=== PATIENT | male | born 1960 | race African-American/Black ===

== ENCOUNTER 2018-06-06 15:50 | Emergency (ER) | payer MEDICARE, OTHER ==
[~2018-06-06] VITALS: Ht 175.3 cm; Wt 78.6 kg
--- NOTE | 2018-06-06 16:25 | ERD ---
ER Documentation Chief Complaint Chief Complaint Suicidal ideation HPI The patient is a 58-year-old male, presenting to the ER because of acute suicidal ideation, want to overdose on his medication, denies auditory/visual hallucination, homicidal ideation, headache, neck pain, chest pain, dyspnea, abdominal pain, vomiting, dizzy, diarrhea. He smokes, denies drinking or using illicit drug Past medical history: COPD, glaucoma, right eye blindness, history of CVA, bipolar, anxiety Past surgical history: Right femur ROS All systems reviewed and are negative except as per history of present illness. Physical Exam Vitals Vital Signs Date Temp Pulse Resp B/P (MAP) Pulse Ox O2 O2 Flow FiO2 Time Delivery Rate 06/06/18 71 14 127/74 100 Room Air 18:10 (91) 06/06/18 97.8 80 14 137/69 100 16:33 (91) Physical Exam Const: No acute distress. Head: Atraumatic. Eyes: Normal Conjunctiva. ENT: Normal External Ears, Nose and Mouth. Neck: Full range of motion. No meningismus. Resp: Mild bilateral expiratory wheezes Cardio: Regular rate and rhythm. Abd: Soft, non distended, normal bowel sounds, non tender. Skin: No petechiae or rashes. Back: No midline or flank tenderness. Ext: No cyanosis, or edema. Neur: Awake and alert. No focal deficit Psych: Depressed and suicidal Result Diagram: 06/06/18 1642 06/06/18 1642 Results 24 hrs Laboratory Tests Test 06/06/18 16:42 White Blood Count 7.3 10^3/ul Red Blood Count 3.74 10^6/ul Hemoglobin 11.4 g/dl Hematocrit 35.8 % Mean Corpuscular Volume 95.7 fl Mean Corpuscular Hemoglobin 30.5 pg Mean Corpuscular Hemoglobin Concent 31.8 g/dl Red Cell Distribution Width 14.6 % Platelet Count 430 10^3/UL Mean Platelet Volume 9.6 fl Immature Granulocytes % 0.300 % Neutrophils % 59.0 % Lymphocytes % 24.7 % Monocytes % 11.7 % Eosinophils % 3.3 % Basophils % 1.0 % Nucleated Red Blood Cells % 0.0 /100WBC Immature Granulocytes # 0.020 10^3/ul Neutrophils # 4.3 10^3/ul Lymphocytes # 1.8 10^3/ul Monocytes # 0.9 10^3/ul Eosinophils # 0.2 10^3/ul Basophils # 0.1 10^3/ul Nucleated Red Blood Cells # 0.0 10^3/ul Sodium Level 139 mmol/L Potassium Level 3.8 mmol/L Chloride Level 105 mmol/L Carbon Dioxide Level 26 mmol/L Anion Gap 8 Blood Urea Nitrogen 13 mg/dl Creatinine 0.71 mg/dl Est Glomerular Filtrat Rate mL/min > 60 mL/min Glucose Level 106 mg/dl Calcium Level 9.4 mg/dl Total Bilirubin 0.0 mg/dl Direct Bilirubin 0.00 mg/dl Indirect Bilirubin 0.0 mg/dl Aspartate Amino Transf (AST/SGOT) 24 IU/L Alanine Aminotransferase (ALT/SGPT) 14 IU/L Alkaline Phosphatase 78 IU/L Total Protein 7.5 g/dl Albumin 3.8 g/dl Globulin 3.70 g/dl Albumin/Globulin Ratio 1.02 Salicylates Level < 1.0 mg/dl Acetaminophen Level < 10.0 ug/ml Ethyl Alcohol Level < 10.0 mg/dl Current Medications Medications Dose Sig/Kendall Start Time Status Last (Trade) Ordered Route PRN Stop Time Admin Dose Reason Admin Ipratropium 0.5 mg ONCE STAT 06/06/18 DC [place] NEB 16:51 06/06/18 (Atrovent 16:52 0.02% (Neb)) 1.25 mg ONCE STAT 06/06/18 DC Levalbuterol INH 16:51 06/06/18 (Xopenex 16:52 Neb) 1 tab ONCE ONCE 06/06/18 DC 06/06/18 Acetaminophen PO 17:00 06/06/18 17:15 / 17:01 Hydrocodone Bitart (Willis (5/325)) Procedures/MDM MEDICAL MAKING DECISION: The patient is a 58-year-old male, presenting with suicidal ideation he was treated with Xopenex 125 mg and Atrovent 0.5 mg. He was treated with Xopeniex 1.25 mg and Atrovent 0.5 mg wheezing and Willis 5 mg for his chronic pain with good response The differential diagnoses considered include but are not limited to decompens ated psychiatric illness, medical noncompliance, anxiety attack, panic attack Departure Diagnosis: Primary Impression: Suicidal ideation Additional Impression: Anemia Condition: Stable Comments He was treated by telepsychiatrist who put him on 5150 hold He is cleared for psychiatric admission MELISSA,SOL M MD Jun 06, 2018 16:25
[2018-06-06 16:33] VITALS: Ht 175.3 cm; Wt 78.6 kg
[2018-06-06] MEDS ORDERED: LEVALBUTEROL (NEB) 1.25 MG/0.5 ML AMP INH STA (16:51)
[2018-06-06] MEDS ORDERED: IPRATROPIUM (NEB) 0.5 MG/2.5 ML AMP NEB STA (16:51)
[2018-06-06] MEDS ORDERED: HYDROCODONE/APAP (5/325) TAB PO ONE (17:00)
--- NOTE | 2018-06-06 17:36 | PSY ---
Date/Time of Note Date/Time of Note DATE: 06/06/18 TIME: 17:30 Psychiatric Subjective Eval Consent Pt consented to telemedicine: Yes Subjective Evaluation Patient location: emergency Chief Complaint: SUICIDAL IDEATION History of present illness 58 yo disabled male BIB [facility] after he called 911 expressing active SI. Pt says he has multiple medical problems, he is not able to take care of his needs, his housing is a slam, he is despondent, hopeless, helpless and was thnking about OD on restoril. He says he is in pain, he is going blind from glaucima, he is wheelchair bound. He denies HI, denies AH or VH . Past psychiatric history pt has a hx prior SA and inpt Hospitalization: Suicidal Attempt(s) Family History denies Medical history Per pt, hx RA, glaucoma, COPD, chronic pain Substance Abuse Substance use: No known substance abuse Social History Marital status: single DPA/Conservatorship: No Occupation/Intermediate: on [employer]SI Psychiatric Objective Eval Review of Systems: Review of Systems: Not Applicable Physical Examination: Sleep: Insomnia Appetite: Decreased Energy: Decreased Interest: Decreased Mental Status Examination: Appearance: Disheveled Eye Contact: Good Psychomotor Activity: Normal Behavior: Cooperative Speech: Clear AFFECT: Appropriate Though Process: Circumstantial Thought Content: Normal Suicidal: Yes Homicidal: No On 72 hour hold: No Orientation: x4 Cognition: Alert Insight: Intact Judgement: Intact Laboratory Results Laboratory Tests Test 06/06/18 16:42 White Blood Count 7.3 10^3/ul Red Blood Count 3.74 10^6/ul Hemoglobin 11.4 g/dl Hematocrit 35.8 % Mean Corpuscular Volume 95.7 fl Mean Corpuscular Hemoglobin 30.5 pg Mean Corpuscular Hemoglobin Concent 31.8 g/dl Red Cell Distribution Width 14.6 % Platelet Count 430 10^3/UL Mean Platelet Volume 9.6 fl Immature Granulocytes % 0.300 % Neutrophils % 59.0 % Lymphocytes % 24.7 % Monocytes % 11.7 % Eosinophils % 3.3 % Basophils % 1.0 % Nucleated Red Blood Cells % 0.0 /100WBC Immature Granulocytes # 0.020 10^3/ul Neutrophils # 4.3 10^3/ul Lymphocytes # 1.8 10^3/ul Monocytes # 0.9 10^3/ul Eosinophils # 0.2 10^3/ul Basophils # 0.1 10^3/ul Nucleated Red Blood Cells # 0.0 10^3/ul Sodium Level 139 mmol/L Potassium Level 3.8 mmol/L Chloride Level 105 mmol/L Carbon Dioxide Level 26 mmol/L Anion Gap 8 Blood Urea Nitrogen 13 mg/dl Creatinine 0.71 mg/dl Est Glomerular Filtrat Rate mL/min > 60 mL/min Glucose Level 106 mg/dl Calcium Level 9.4 mg/dl Total Bilirubin 0.0 mg/dl Direct Bilirubin 0.00 mg/dl Indirect Bilirubin 0.0 mg/dl Aspartate Amino Transf (AST/SGOT) 24 IU/L Alanine Aminotransferase (ALT/SGPT) 14 IU/L Alkaline Phosphatase 78 IU/L Total Protein 7.5 g/dl Albumin 3.8 g/dl Globulin 3.70 g/dl Albumin/Globulin Ratio 1.02 Salicylates Level < 1.0 mg/dl Acetaminophen Level < 10.0 ug/ml Ethyl Alcohol Level < 10.0 mg/dl Assessment and Plan Assessment/Diagnosis Diagnosis MAJOR DEPRESSIVE DISORDER RECURRENT SEVERE W/O PSYCHOSIS Recommendation/Plan Medication Management PLEASE VERIFY PT'S HOME MEDS VIA HIS HOME PHARMACY AND RESUME. PT STATES HE IS ON XANAX 2 MG PO QAM; REDUCING IT BY 1 MG MIGHT LEAD TO BENZOS WITHDRAWALS. PLEASE VERIFY THE DOSE WITH THE PHARMACY AND IF CONFIRMD, PLEASE MAINTAIN ON 2 MG PO QAM WHILE IN ED. Multiple antipsychotics: Yes Discharge Disposition: Psychiatric inpatient Legal Status: Voluntary Other D/D DR LIMON WITH AN ACTIVE PLAN. PLEASE TRANSFER TO IN PSYCH. TIGIST MENDOZA MD Jun 06, 2018 17:36
[2018-06-07] MEDS ORDERED: HYDROCODONE/APAP (5/325) TAB PO ONE (04:30)
[2018-06-07] MEDS ORDERED: ALPRAZOLAM 1 MG TAB PO ONE (04:30)
[2018-06-07] MEDS ORDERED: LORAZEPAM 1 MG TAB PO ONE (12:00)
[2018-06-07] MEDS ORDERED: ONDANSETRON (ODT) 4 MG TAB ODT STA (17:06)
[2018-06-07] MEDS ORDERED: HYDROCODONE/APAP (10/325) TAB PO ONE (17:30)
[2018-06-07 19:28] VITALS: BP 123/79; PULSE 78; RESP 18
== END 2018-06-07 19:39 ==
LOC: E/R 15:50
DX: R45.851 Suicidal ideations (principal); R40.2142 Coma scale, eyes open, spontaneous, at arrival to emergency department; D64.9 Anemia, unspecified; R40.2362 Coma scale, best motor response, obeys commands, at arrival to emergency department; R40.2252 Coma scale, best verbal response, oriented, at arrival to emergency department; J44.9 Chronic obstructive pulmonary disease, unspecified; Z86.73 Personal history of transient ischemic attack (TIA), and cerebral infarction without residual deficits
CPT/HCPCS: 36415; 80053; 80307; 81003; 85025